=== PATIENT | female | born 1995 | race Caucasian/White ===

== ENCOUNTER 2020-03-24 00:11 | Inpatient (IN) | payer BC ==
[~2020-03-24] VITALS: Ht 160 cm; Wt 93.0 kg
[~2020-03-24 00:11] MED LIST: CEPHALEXIN500 MG PO; NEXPLANON68 MG SUB-Q; PYRIDIUM200 MG PO; ZOFRAN4 MG PO
--- NOTE | 2020-03-25 07:41 | PR ---
[facility] [address] [place], [place] [address] Signed PP Progress Notes Datetime Report Generated by CPN: 03/25/2020 07:41 SUBJECTIVE: [id number] Pain: Within Normal Limits Nausea/Vomiting: Denies Flatus: Yes Bowel Movement: Yes Vital Signs: [id number] Vital Signs: Reviewed; Within Normal Limits EXAM: Ongoing Cardiovascular: Normal Respiratory: Normal Abdomen/Uterus: Normal Lochia: Normal Vulva/Perineum: Not Done Breasts: Not Done CVA Tenderness: Normal Extremities: Normal Incision: Not Applicable Progress: Not Applicable Exam Comments: Fundus firm U-2 nontender IMPRESSION/PLAN/PROCEDURES: [id number] Impression: Normal Progression Plan: Discharge Progress Notes: Pt seen and examined. Doing well. Ambulating, voiding, and tolerating full diet. Pain and lochia minimal. Bottlefeeding. No concerns. Desires d/c home today. Reviewed d/c instructions in detail w/ pt and . All questions answered Signing Physician: Amanda Araya DO Copies: ~ *Electronically Signed* 03/25/20 0741 AMANDA ARAYA DO PATIENT NAME: ALEC KIRKLAND PROGRESS NOTE DATE OF : [birth year] PHYSICIAN: AMANDA ARAYA DO RPT #: [id number] REPORT IS CONFIDENTIAL AND NOT TO BE RELEASED WITHOUT AUTHORIZATION
== END 2020-03-25 12:20 | disposition home or self-care (01) | DRG 807 ==
LOC: FBC 00:11
PROVIDERS: ADMIT Obstetrics & Gynecology; ATTEND Obstetrics & Gynecology
PROC: 10E0XZZ Delivery of Products of Conception, External Approach (ICD-10-PCS; principal; 2020-03-24)
PROC: 0HQ9XZZ Repair Perineum Skin, External Approach (ICD-10-PCS; 2020-03-24)
PROC: 0UQMXZZ Repair Vulva, External Approach (ICD-10-PCS; 2020-03-24)
PROC: 3E0P7VZ Introduction of Hormone into Female Reproductive, Via Natural or Artificial Opening (ICD-10-PCS; 2020-03-24)
PROC: 00HU33Z Insertion of Infusion Device into Spinal Canal, Percutaneous Approach (ICD-10-PCS; 2020-03-24)
PROC: 3E0R3BZ Introduction of Anesthetic Agent into Spinal Canal, Percutaneous Approach (ICD-10-PCS; 2020-03-24)
DX: O99.824 Streptococcus B carrier state complicating childbirth (principal); Z37.0 Single live birth; Z3A.39 39 weeks gestation of pregnancy; O76 Abnormality in fetal heart rate and rhythm complicating labor and delivery; O69.81X0 Labor and delivery complicated by cord around neck, without compression, not applicable or unspecified; O77.0 Labor and delivery complicated by meconium in amniotic fluid; O71.82 Other specified trauma to perineum and vulva; O70.0 First degree perineal laceration during delivery; Z14.1 Cystic fibrosis carrier
CPT/HCPCS: 01960; 36415; 85027; A9270; J2540; J2590; J2795; J3010

== ENCOUNTER 2025-04-18 10:58 | Day surgery (SDC) | payer BC ==
[~2025-04-18] VITALS: Ht 160 cm; Wt 88.0 kg
[~2025-04-18 10:58] MED LIST changes: +IBLOOD GLUCOSE TEST STRIP 1 EA TEST VI PRN; +IMITREX100 MG PO; +LACTATED RINGER'S 1,000 ML IV SCH; +LIDOCAINE HCL 1% 5 ML SDV INJ ONE; +LIDOCAINE HCL 2% 5 ML SDV ONE; +VALTREX1000 MG PO
[2025-04-18 11:14] VITALS: BP 112/72
--- NOTE | 2025-04-18 12:54 | NUR ---
04/18/25 1254 Sheets,[place] 1248 PT ARRIVED TO PACU ON 3L VIA NC, LARGE AMOUNT OF SNORING NOTED. DEEP BREATHING NOTED WITH VERBAL STIMULI. 1250 PT WAKES AND ORIENTED TO PACU, PT DENIES CONCERNS. VSS. O2 REMOVED.
[2025-04-18 13:00] VITALS: BP 110/86
--- NOTE | 2025-04-18 13:43 | OR ---
[facility] [address], [place] [address] Signed DATE OF OPERATION: 04/18/2025 SURGEON: Erich Jaffe DO PREOPERATIVE DIAGNOSIS: Abdominal pain with nausea. POSTOPERATIVE DIAGNOSIS: Abdominal pain with nausea with nonspecific colitis. PROCEDURE PERFORMED: Colonoscopy. ANESTHESIA: IV sedation. ESTIMATED BLOOD LOSS: None. DRAINS: None. COMPLICATIONS: None. DESCRIPTION OF PROCEDURE: The patient was brought to the GI lab, placed in supine position. After induction of IV sedation the patient was placed in left lateral position, padded to satisfaction of anesthesia. The Olympus video colonoscope was introduced into the rectum while insufflating under direct visualization. The colonoscope was introduced and advanced through the rectosigmoid, sigmoid colon, descending colon, transverse colon, ascending colon and the cecum. The colon was insufflated and exploration of the mucosal surface was then carried out. The ascending colon and cecum had no intrinsic or extrinsic masses. No lesions or ulceration noted. Scope was brought back and passed the hepatic flexure to the transverse colon. No lesions or ulceration. No masses were appreciated. Scope was then brought back into the splenic flexure into the descending colon, no intrinsic or extrinsic masses were noted, but some moderate nonspecific colitis was apparent. The scope was then brought back into the sigmoid colon, no intrinsic or extrinsic masses noted with more prominent nonspecific colitis was appreciated. No evidence of ulcerations was noted. No other pathology noted. The rectosigmoid had Electronically Signed By: ERICH JAFFE DO 04/18/25 1343 PATIENT NAME: ALEC KIRKLAND OPERATIVE REPORT DATE OF : [birth year] REPORT #: [id number] PHYSICIAN: ERICH JAFFE DO PCP: ALICIA CATALAN MD REPORT IS CONFIDENTIAL AND NOT TO BE RELEASED WITHOUT AUTHORIZATION [address] [place] [address] Signed similar moderate nonspecific colitis. No ulcerations noted. No bleeding apparent. Scope was withdrawn. The patient tolerated the procedure well, taken to recovery in satisfactory condition. Erich Jaffe DO RS/DARIUSL /[id number] Copies: ~ Electronically Signed By: ERICH JAFFE DO 04/18/25 1343 PATIENT NAME: ALEC KIRKLAND OPERATIVE REPORT DATE OF : [birth year] REPORT #: [id number] PHYSICIAN: ERICH JAFFE DO PCP: ALICIA CATALAN MD REPORT IS CONFIDENTIAL AND NOT TO BE RELEASED WITHOUT AUTHORIZATION
== END 2025-04-18 13:15 | disposition home or self-care (01) ==
LOC: OPS 10:58 → DS 10:58 → OPS 12:00 → DS 05-13 10:45
PROVIDERS: ATTEND Surgery
PROC: 0DJD8ZZ Inspection of Lower Intestinal Tract, Via Natural or Artificial Opening Endoscopic (ICD-10-PCS; principal; 2025-04-18 12:00)
DX: K52.9 Noninfective gastroenteritis and colitis, unspecified (principal); K21.9 Gastro-esophageal reflux disease without esophagitis
CPT/HCPCS: 00811; 84703; J2003; J2704; J7121